=== PATIENT | male | born 1955 | race Caucasian/White ===

== ENCOUNTER 2024-07-15 00:26 | Emergency (ER) | payer MEDICARE ==
[~2024-07-15] VITALS: Ht 182.9 cm; Wt 98.3 kg
[2024-07-15 01:34] LABS: HEMATOCRIT 41.9 % (42.0-52.0); HEMOGLOBIN 14.5 g/dl (13.5-17.5); MEAN CORPUSCULAR HEMOGLOBIN 34.3 pg (27.0-33.0); MEAN CORPUSCULAR HGB CONC 34.6 g/dl (32.0-36.5); MEAN CORPUSCULAR VOLUME 99.1 fl (80.0-96.0); PLATELET COUNT, AUTOMATED 272 10^3/uL (150-450); RED BLOOD COUNT 4.23 10^6/uL (4.30-6.10); WHITE BLOOD COUNT 12.2 10^3/uL (4.0-10.0)
[2024-07-15] MEDS: KETOROLAC 30 MG/ML 1ML VIAL IV ONE (01:47)
[2024-07-15 02:05] LABS: LIPASE 33 U/L (12-53)
[2024-07-15 02:07] LABS: ALBUMIN 3.8 G/DL (3.2-5.2); ALKALINE PHOSPHATASE 94 U/L (46-116); ALT/SGPT 40 U/L (7.0-40); AST/SGOT 21 U/L (<34); BILIRUBIN,DIRECT 0.1 MG/DL (<0.4); BILIRUBIN,TOTAL 0.4 MG/DL (0.3-1.2); BLOOD UREA NITROGEN 18 MG/DL (9-23); CALCIUM LEVEL 9.4 MG/DL (8.3-10.6); CARBON DIOXIDE LEVEL 25 MMOL/L (20-31); CHLORIDE LEVEL 107 MMOL/L (98-107); CREATININE FOR GFR 0.88 MG/DL (0.70-1.30); GLOMERULAR FILTRATION RATE > 60.0 (>49); GLUCOSE, FASTING 122 MG/DL (74-106); POTASSIUM SERUM 4.4 MMOL/L (3.5-5.1); SODIUM LEVEL 137 MMOL/L (136-145); TOTAL PROTEIN 6.7 G/DL (5.7-8.2)
[2024-07-15] MEDS: ACETAMINOPHEN *IV* 1,000 MG in IV 1 EA IV ONE (03:05)
[2024-07-15] MEDS ORDERED: METH-1165 PO (04:56)
[2024-07-15] MEDS ORDERED: NAPR-837 PO (04:56)
[2024-07-15] MEDS: methocarbamoL 750 MG TAB PO ONE (05:04)
[2024-07-15 05:08] VITALS: BP 132/90; TEMP 96.9; O2SAT 100
== END 2024-07-15 05:11 | disposition home or self-care (01) ==
LOC: M ED 00:26
DX: M54.50 Low back pain, unspecified (principal); Z79.2 Long term (current) use of antibiotics; Z79.899 Other long term (current) drug therapy
CPT/HCPCS: 72110; 80048; 80076; 81001; 83690; 85027; 96374; 96375; 99284; J0131; J1885